=== PATIENT | female | born 1985 | race African-American/Black ===

== ENCOUNTER 2016-08-04 07:06 | Emergency (ER) | payer MEDICARE, MEDICAID ==
[~2016-08-04] VITALS: Ht 172.7 cm; Wt 61.0 kg
[~2016-08-04 07:06] MED LIST: CLON2TAB4; LORAZEPAM; SERT-112
[2016-08-04 07:43] VITALS: BP 102/66
[2016-08-04] MEDS ORDERED: LEVE1000 PO (07:49)
[2016-08-04] MEDS ORDERED: ALPR-392 PO (07:50)
== END 2016-08-04 08:33 | disposition home or self-care (01) ==
LOC: ER 07:51
DX: T78.40XA Allergy, unspecified, initial encounter (principal); F41.9 Anxiety disorder, unspecified; G40.909 Epilepsy, unspecified, not intractable, without status epilepticus; X58.XXXA Exposure to other specified factors, initial encounter
CPT/HCPCS: 99283

== ENCOUNTER 2016-08-09 08:52 | Emergency (ER) | payer MEDICARE, MEDICAID ==
[~2016-08-09 08:52] MED LIST changes: +ALPR-392 PO; +LEVE1000 PO
== END 2016-08-09 09:26 | disposition left against medical advice (07) ==
LOC: ER 09:18
DX: Z53.21 Procedure and treatment not carried out due to patient leaving prior to being seen by health care provider (principal)

== ENCOUNTER 2016-08-10 11:28 | Emergency (ER) | payer MEDICARE, MEDICAID ==
[~2016-08-10] VITALS: Ht 172.7 cm; Wt 61.0 kg
[2016-08-10 11:53] VITALS: BP 103/61
== END 2016-08-10 14:00 | disposition home or self-care (01) ==
LOC: ER 13:32
DX: Z76.0 Encounter for issue of repeat prescription (principal); M51.36 Other intervertebral disc degeneration, lumbar region; G40.909 Epilepsy, unspecified, not intractable, without status epilepticus; F41.9 Anxiety disorder, unspecified; Z91.018 Allergy to other foods; Z91.09 Other allergy status, other than to drugs and biological substances
CPT/HCPCS: 99283; J7030

== ENCOUNTER 2017-01-13 15:09 | Emergency (ER) | payer MEDICAID, MEDICARE ==
[~2017-01-13] VITALS: Ht 172.7 cm; Wt 71.0 kg
[2017-01-13 15:18] VITALS: BP 118/88
== END 2017-01-13 19:29 | disposition home or self-care (01) ==
LOC: ER 16:31
DX: S50.11XA Contusion of right forearm, initial encounter (principal); H91.92 Unspecified hearing loss, left ear; X58.XXXA Exposure to other specified factors, initial encounter; Y93.89 Activity, other specified; Y92.89 Other specified places as the place of occurrence of the external cause; Y99.8 Other external cause status
CPT/HCPCS: 99281

== ENCOUNTER 2017-03-31 07:54 | Emergency (ER) | payer MEDICAID ==
[~2017-03-31] VITALS: Ht 165.1 cm; Wt 65.0 kg
[2017-03-31] MEDS ORDERED: KETOROLAC 60MG/2ML VIAL IM ONE (09:30)
[2017-03-31 09:40] VITALS: BP 143/100
== END 2017-03-31 10:02 | disposition home or self-care (01) ==
LOC: ER 08:05
DX: M54.5 Low back pain (principal); F20.9 Schizophrenia, unspecified
CPT/HCPCS: 96372; 99283; J1885

== ENCOUNTER 2017-10-18 15:36 | Emergency (ER) | payer MEDICARE, MEDICAID ==
[~2017-10-18] VITALS: Ht 172.7 cm; Wt 68.0 kg
[~2017-10-18 15:36] MED LIST changes: +CLON2TAB11; -CLON2TAB4
[2017-10-18] MEDS ORDERED: SODIUM CHLORIDE 0.9% 1,000 ML IV ONE ×2 (17:00→19:15)
[2017-10-18 18:45] LABS: CLARITY URINE CLEAR (CLEAR); COLOR URINE YELLOW (YELLOW); KETONES URINE 3+ (NEGATIVE); LEUKOCYTE ESTERASE URINE NEGATIVE (NEGATIVE); NITRITE URINE NEGATIVE (NEGATIVE); OCCULT BLOOD URINE NEGATIVE (NEGATIVE); PROTEIN URINE NEGATIVE (NEGATIVE); SPECIFIC GRAVITY URINE 1.043 (1.005-1.030); UROBILINOGEN URINE 0.2 E.U./dL (0.2-1.0)
[2017-10-18 19:03] LABS: BASOPHILS % 0.7 % (0.0-2.0); EOSINOPHILS % 1.4 % (0.0-5.0); HEMATOCRIT. 46.4 % (36.0-48.0); HEMOGLOBIN. 15.8 g/dL (12.0-16.0); LYMPHOCYTES % 33.5 % (20.0-50.0); MEAN CORPUSCULAR HEMOGLOBIN 31.7 pg (28.0-32.0); MEAN CORPUSCULAR VOLUME 92.7 fL (81.0-99.0); MEAN PLATELET VOLUME 9.1 fl (7.4-10.4); MONOCYTES % 9.8 % (2.0-8.0); NEUTROPHILS % 54.6 % (40.0-76.0); PLATELET 307 x1000/uL (130-400); RED CELL DISTRIBUTION WIDTH 12.8 % (11.6-14.6)
[2017-10-18 19:03] LABS: *AMPHETAMINES SCREEN URINE NEGATIVE (NEGATIVE); *BARBITURATES SCREEN URINE NEGATIVE (NEGATIVE); *COCAINE SCREEN URINE NEGATIVE (NEGATIVE)
[2017-10-18 19:04] LABS: *BENZODIAZEPINES SCREEN URINE PRESUMTIVE POSITIVE (NEGATIVE); CANNABINOID URINE SCREEN NEGATIVE (NEGATIVE); METHADONE URINE SCREEN NEGATIVE (NEGATIVE); OPIATES URINE SCREEN NEGATIVE (NEGATIVE); PHENCYCLIDINE URINE SCREEN NEGATIVE (NEGATIVE)
[2017-10-18 19:04] LABS: CHLORIDE 97 mEq/L (98-107)
[2017-10-18 21:21] VITALS: BP 119/86
== END 2017-10-18 21:29 | disposition home or self-care (01) ==
LOC: ER 17:27
DX: R73.9 Hyperglycemia, unspecified (principal); R00.0 Tachycardia, unspecified; G40.909 Epilepsy, unspecified, not intractable, without status epilepticus; Z83.3 Family history of diabetes mellitus
CPT/HCPCS: 36415; 80048; 80305; 81003; 81025; 82962; 85025; 99285; J7030

== ENCOUNTER 2017-10-19 14:49 | Emergency (ER) | payer MEDICARE, MEDICAID ==
[~2017-10-19] VITALS: Ht 172.7 cm; Wt 68.6 kg
[2017-10-19 15:23] VITALS: BP 109/76
[2017-10-19] MEDS ORDERED: SODIUM CHLORIDE 0.9% 1,000 ML IV ONE (15:30)
[2017-10-19 16:17] LABS: BASOPHILS % 0.3 % (0.0-2.0); EOSINOPHILS % 1.6 % (0.0-5.0); HEMATOCRIT. 43.2 % (36.0-48.0); HEMOGLOBIN. 14.7 g/dL (12.0-16.0); LYMPHOCYTES % 32.3 % (20.0-50.0); MEAN CORPUSCULAR HEMOGLOBIN 31.8 pg (28.0-32.0); MEAN CORPUSCULAR VOLUME 93.3 fL (81.0-99.0); MONOCYTES % 6.8 % (2.0-8.0); RED BLOOD CELL COUNT 4.64 mill/uL (4.2-5.4); RED CELL DISTRIBUTION WIDTH 12.6 % (11.6-14.6)
[2017-10-19 16:22] LABS: CHLORIDE 98 mEq/L (98-107)
[2017-10-19 16:30] LABS: BETA HYDROXYBUTYRATE 2.4 mMol/L (0.0-0.3)
== END 2017-10-19 17:45 | disposition left against medical advice (07) ==
LOC: ER 14:49
DX: E11.65 Type 2 diabetes mellitus with hyperglycemia (principal); R56.9 Unspecified convulsions; F41.9 Anxiety disorder, unspecified
CPT/HCPCS: 36415; 80053; 82010; 85025; 99284; J7030

== ENCOUNTER 2017-11-16 19:15 | Emergency (ER) | payer MEDICARE, MEDICAID ==
[~2017-11-16] VITALS: Ht 172.7 cm; Wt 63.6 kg
[2017-11-16] MEDS ORDERED: ACETAMINOPHEN WITH CODEINE 300/30MG TABLET PO STA (23:49)
[2017-11-17 00:56] LABS: CHLORIDE 101 mEq/L (98-107)
[2017-11-17 01:01] LABS: BASOPHILS % 1.1 % (0.0-2.0); EOSINOPHILS % 2.1 % (0.0-5.0); HEMATOCRIT. 40.4 % (36.0-48.0); HEMOGLOBIN. 13.8 g/dL (12.0-16.0); LYMPHOCYTES % 41.3 % (20.0-50.0); MEAN CORPUSCULAR HEMOGLOBIN 32.4 pg (28.0-32.0); MEAN CORPUSCULAR VOLUME 94.5 fL (81.0-99.0); MEAN PLATELET VOLUME 8.2 fl (7.4-10.4); MONOCYTES % 10.1 % (2.0-8.0); NEUTROPHILS % 45.4 % (40.0-76.0); PLATELET 292 x1000/uL (130-400); RED BLOOD CELL COUNT 4.27 mill/uL (4.2-5.4); RED CELL DISTRIBUTION WIDTH 12.8 % (11.6-14.6)
[2017-11-17] MEDS ORDERED: KETOROLAC 15MG/ML VIAL IV ONE (01:30)
[2017-11-17 02:58] VITALS: BP 124/71
== END 2017-11-17 03:01 | disposition home or self-care (01) ==
LOC: ER 19:15
DX: R07.89 Other chest pain (principal); F41.9 Anxiety disorder, unspecified; R00.0 Tachycardia, unspecified; G40.909 Epilepsy, unspecified, not intractable, without status epilepticus; E11.9 Type 2 diabetes mellitus without complications
CPT/HCPCS: 36415; 71045; 80053; 81025; 84484; 85025; 85379; 93005; 96374; 99285; J1885

== ENCOUNTER 2018-04-25 12:08 | Emergency (ER) | payer BC, MEDICAID ==
[~2018-04-25] VITALS: Ht 172.7 cm; Wt 73.0 kg
[2018-04-25 14:11] VITALS: BP 126/82
== END 2018-04-25 17:52 | disposition left against medical advice (07) ==
LOC: ER 12:08
DX: Z53.21 Procedure and treatment not carried out due to patient leaving prior to being seen by health care provider (principal)

== ENCOUNTER 2018-04-26 06:46 | Emergency (ER) | payer BC, MEDICAID ==
[~2018-04-26] VITALS: Ht 172.7 cm; Wt 73.0 kg
[2018-04-26 07:14] VITALS: BP 108/73
[2018-04-26 09:29] LABS: CLARITY URINE CLEAR (CLEAR); COLOR URINE YELLOW (YELLOW); KETONES URINE NEGATIVE (NEGATIVE); LEUKOCYTE ESTERASE URINE NEGATIVE (NEGATIVE); NITRITE URINE NEGATIVE (NEGATIVE); OCCULT BLOOD URINE NEGATIVE (NEGATIVE); PH URINE 5.5 (4.5-8.0); PROTEIN URINE NEGATIVE (NEGATIVE); SPECIFIC GRAVITY URINE 1.011 (1.005-1.030); UROBILINOGEN URINE 0.2 E.U./dL (0.2-1.0)
== END 2018-04-26 10:00 | disposition home or self-care (01) ==
LOC: ER 06:46
DX: S40.022A Contusion of left upper arm, initial encounter (principal); G89.29 Other chronic pain; M54.5 Low back pain; E11.9 Type 2 diabetes mellitus without complications; R56.9 Unspecified convulsions; F41.0 Panic disorder [episodic paroxysmal anxiety]; Z79.899 Other long term (current) drug therapy; X58.XXXA Exposure to other specified factors, initial encounter; Y93.89 Activity, other specified; Y92.89 Other specified places as the place of occurrence of the external cause; Y99.8 Other external cause status
CPT/HCPCS: 81025; 99283

== ENCOUNTER 2018-05-18 10:21 | Emergency (ER) | payer BC, MEDICAID ==
[~2018-05-18] VITALS: Ht 172.7 cm; Wt 73.0 kg
[2018-05-18 11:15] VITALS: BP 122/76
[2018-05-18 11:52] LABS: CLARITY URINE CLEAR (CLEAR); COLOR URINE YELLOW (YELLOW); KETONES URINE NEGATIVE (NEGATIVE); LEUKOCYTE ESTERASE URINE NEGATIVE (NEGATIVE); NITRITE URINE NEGATIVE (NEGATIVE); OCCULT BLOOD URINE NEGATIVE (NEGATIVE); PH URINE 5.5 (4.5-8.0); PROTEIN URINE NEGATIVE (NEGATIVE); SPECIFIC GRAVITY URINE 1.016 (1.005-1.030); UROBILINOGEN URINE 0.2 E.U./dL (0.2-1.0)
== END 2018-05-18 15:08 | disposition left against medical advice (07) ==
LOC: ER 11:33
DX: Z53.21 Procedure and treatment not carried out due to patient leaving prior to being seen by health care provider (principal)
CPT/HCPCS: 81025

== ENCOUNTER 2018-07-10 18:13 | Emergency (ER) | payer OTHER, MEDICAID ==
[~2018-07-10] VITALS: Ht 172.7 cm; Wt 74.0 kg
[2018-07-10 18:15] VITALS: BP 125/86
== END 2018-07-10 20:19 | disposition left against medical advice (07) ==
LOC: ER 18:13
DX: M54.5 Low back pain (principal); Z53.21 Procedure and treatment not carried out due to patient leaving prior to being seen by health care provider
CPT/HCPCS: 82962

== ENCOUNTER 2018-07-16 19:51 | Emergency (ER) | payer OTHER, MEDICAID ==
[~2018-07-16] VITALS: Ht 172.7 cm; Wt 73.0 kg
[2018-07-16 22:32] VITALS: BP 108/73
[2018-07-16] MEDS ORDERED: KETOROLAC 60MG/2ML VIAL IM STA (22:32)
== END 2018-07-16 23:51 | disposition home or self-care (01) ==
LOC: ER 19:51
DX: K13.0 Diseases of lips (principal); L01.00 Impetigo, unspecified; K14.0 Glossitis
CPT/HCPCS: 96372; 99283; J1885

== ENCOUNTER 2018-08-06 13:43 | Emergency (ER) | payer OTHER, MEDICAID ==
[~2018-08-06] VITALS: Ht 172.7 cm; Wt 72.0 kg
[2018-08-06] MEDS ORDERED: MORPHINE SULFATE 4 MG/ML CPJ (NOT FOR IM USE) IV STA (14:55)
[2018-08-06] MEDS ORDERED: KETOROLAC 30MG/ML VIAL IV STA (14:55)
[2018-08-06] MEDS ORDERED: DEXAMETHASONE 4MG/ML 1ML VIAL IV ONE (15:00)
[2018-08-06 15:40] VITALS: BP 113/74
== END 2018-08-06 17:00 | disposition home or self-care (01) ==
LOC: ER 14:18
DX: M54.5 Low back pain (principal); G89.29 Other chronic pain
CPT/HCPCS: 96374; 96375; 99283; J1100; J1885; J2270

== ENCOUNTER 2018-12-16 14:29 | Emergency (ER) | payer OTHER, MEDICAID ==
[~2018-12-16] VITALS: Ht 172.7 cm; Wt 67.0 kg
[2018-12-16] MEDS ORDERED: LIDOCAINE 5% PATCH TOP STA (18:24)
[2018-12-16] MEDS ORDERED: IBUPROFEN 800MG TABLET PO ONE (18:30)
[2018-12-16] MEDS ORDERED: ACETAMINOPHEN 325MG TABLET PO ONE (18:30)
[2018-12-16 19:08] LABS: BASOPHILS % 0.7 % (0.0-2.0); EOSINOPHILS % 3.3 % (0.0-5.0); LYMPHOCYTES % 38.3 % (20.0-50.0); MEAN CORPUSCULAR HEMOGLOBIN 31.7 pg (28.0-32.0); MEAN CORPUSCULAR VOLUME 92.8 fL (81.0-99.0); MEAN PLATELET VOLUME 8.6 fl (7.4-10.4); MONOCYTES % 9.1 % (2.0-8.0); NEUTROPHILS % 48.6 % (40.0-76.0); PLATELET 370 x1000/uL (130-400); RED BLOOD CELL COUNT 4.42 mill/uL (4.2-5.4); RED CELL DISTRIBUTION WIDTH 13.1 % (11.6-14.6)
[2018-12-16 19:12] LABS: CHLORIDE 104 mEq/L (98-107)
[2018-12-16 19:30] LABS: CLARITY URINE CLOUDY (CLEAR); COLOR URINE YELLOW (YELLOW); KETONES URINE 1+ (NEGATIVE); LEUKOCYTE ESTERASE URINE NEGATIVE (NEGATIVE); NITRITE URINE NEGATIVE (NEGATIVE); OCCULT BLOOD URINE NEGATIVE (NEGATIVE); PROTEIN URINE 1+ (NEGATIVE); SPECIFIC GRAVITY URINE 1.037 (1.005-1.030)
[2018-12-16] MEDS ORDERED: HYDROCODONE/ACETAMINOPHEN 10/325MG TABLET PO ONE (20:15)
[2018-12-16 21:20] VITALS: BP 122/81
== END 2018-12-16 21:35 | disposition home or self-care (01) ==
LOC: ER 14:29
DX: G89.29 Other chronic pain (principal); M54.5 Low back pain; R07.89 Other chest pain; E11.9 Type 2 diabetes mellitus without complications; Z79.899 Other long term (current) drug therapy
CPT/HCPCS: 36415; 71045; 81003; 81025; 84484; 85379; 93005; 99284

== ENCOUNTER 2019-10-15 20:26 | Emergency (ER) | payer OTHER, MEDICAID ==
[~2019-10-15] VITALS: Ht 172.7 cm; Wt 75.0 kg
[2019-10-15] MEDS ORDERED: KETOROLAC 60MG/2ML VIAL IM STA (22:30)
[2019-10-15] MEDS ORDERED: LIDOCAINE 1%/EPI 1:100,000 10 ML VIAL IJ ONE (22:45)
[2019-10-15] MEDS ORDERED: BACITRACIN ZINC OINT UDPKT TOP ONE (22:45)
[2019-10-15 23:36] VITALS: BP 123/88
== END 2019-10-15 23:38 | disposition home or self-care (01) ==
LOC: ER 20:26
DX: L02.01 Cutaneous abscess of face (principal); G40.909 Epilepsy, unspecified, not intractable, without status epilepticus; E11.9 Type 2 diabetes mellitus without complications; Z98.890 Other specified postprocedural states
CPT/HCPCS: 96372; 99283; J1885

== ENCOUNTER 2019-11-06 21:31 | Emergency (ER) | payer OTHER, MEDICAID ==
[~2019-11-06] VITALS: Ht 172.7 cm; Wt 73.0 kg
[2019-11-06 21:39] VITALS: BP 143/100
[2019-11-06] MEDS ORDERED: IBUPROFEN 600MG TABLET PO ONE (23:30)
[2019-11-07] MEDS ORDERED: HYDROCODONE/ACETAMINOPHEN 5/325MG TABLET PO ONE (00:15)
== END 2019-11-07 01:07 | disposition home or self-care (01) ==
LOC: ER 21:31
DX: M54.5 Low back pain (principal); G89.29 Other chronic pain; Z98.890 Other specified postprocedural states; Z79.899 Other long term (current) drug therapy
CPT/HCPCS: 72100; 99283

== ENCOUNTER 2019-12-10 17:41 | Emergency (ER) | payer OTHER, MEDICAID ==
[~2019-12-10] VITALS: Ht 172.7 cm; Wt 73.0 kg
[2019-12-10] MEDS ORDERED: MORPHINE SULFATE 4 MG/ML CPJ (NOT FOR IM USE) IV STA (18:41)
[2019-12-10] MEDS ORDERED: CYCLOBENZAPRINE 10MG TABLET PO ONE (18:45)
[2019-12-10 20:08] LABS: BASOPHILS % 0.7 % (0.0-2.0); EOSINOPHILS % 4.2 % (0.0-5.0); HEMATOCRIT. 39.3 % (36.0-48.0); HEMOGLOBIN. 13.6 g/dL (12.0-16.0); LYMPHOCYTES % 40.3 % (20.0-50.0); MEAN CORPUSCULAR HEMOGLOBIN 32.8 pg (28.0-32.0); MEAN PLATELET VOLUME 8.2 fl (7.4-10.4); MONOCYTES % 9.4 % (2.0-8.0); NEUTROPHILS % 45.4 % (40.0-76.0); PLATELET 353 x1000/uL (130-400); RED BLOOD CELL COUNT 4.13 mill/uL (4.2-5.4); RED CELL DISTRIBUTION WIDTH 13.1 % (11.6-14.6)
[2019-12-10 20:13] LABS: CHLORIDE 105 mEq/L (98-107)
[2019-12-10 20:16] LABS: INR 0.9
[2019-12-10 20:44] LABS: HCG SCREEN NEGATIVE
[2019-12-10] MEDS ORDERED: MORPHINE SULFATE 4 MG/ML CPJ (NOT FOR IM USE) IV ONE (20:45)
[2019-12-10] MEDS ORDERED: KETOROLAC 15MG/ML VIAL IV ONE (20:45)
[2019-12-10 21:28] LABS: CLARITY URINE CLEAR (CLEAR); COLOR URINE YELLOW (YELLOW); KETONES URINE NEGATIVE (NEGATIVE); LEUKOCYTE ESTERASE URINE NEGATIVE (NEGATIVE); NITRITE URINE NEGATIVE (NEGATIVE); OCCULT BLOOD URINE TRACE (NEGATIVE); PROTEIN URINE TRACE (NEGATIVE); SPECIFIC GRAVITY URINE 1.027 (1.005-1.030); UROBILINOGEN URINE 0.2 E.U./dL (0.2-1.0)
[2019-12-10 22:53] VITALS: BP 125/87
== END 2019-12-10 23:21 | disposition short-term general hospital (02) ==
LOC: ER 17:41
DX: M54.5 Low back pain (principal)
CPT/HCPCS: 36415; 80053; 81003; 82962; 84703; 85025; 85610; 85651; 93005; 96374; 96375; 96376; 99285; J1885; J2270

== ENCOUNTER 2019-12-23 19:45 | Emergency (ER) | payer OTHER, MEDICAID ==
[~2019-12-23] VITALS: Ht 172.7 cm; Wt 77.0 kg
[2019-12-23] MEDS ORDERED: MORPHINE SULFATE 10 MG/ML CPJ IM ONE (20:45)
[2019-12-23] MEDS ORDERED: ONDANSETRON 4MG ODT PO ONE (20:45)
[2019-12-23 22:12] VITALS: BP 112/81
== END 2019-12-23 22:16 | disposition home or self-care (01) ==
LOC: ER 20:22
DX: M54.5 Low back pain (principal); G89.11 Acute pain due to trauma; Z91.81 History of falling; G89.29 Other chronic pain; E11.9 Type 2 diabetes mellitus without complications; G40.909 Epilepsy, unspecified, not intractable, without status epilepticus; Z98.1 Arthrodesis status; Z79.899 Other long term (current) drug therapy
CPT/HCPCS: 72100; 96372; 99283; J2270; Q0162

== ENCOUNTER 2019-12-28 09:09 | Emergency (ER) | payer OTHER, MEDICAID ==
[~2019-12-28] VITALS: Ht 172.7 cm; Wt 69.0 kg
[2019-12-28] MEDS: SODIUM CHLORIDE 0.9% 1,000 ML IV ONE (10:02)
[2019-12-28 11:27] LABS: BASOPHILS % 0.4 % (0.0-2.0); HEMATOCRIT. 38.8 % (36.0-48.0); HEMOGLOBIN. 13.3 g/dL (12.0-16.0); LYMPHOCYTES % 33.7 % (20.0-50.0); MEAN CORPUSCULAR HEMOGLOBIN 32.7 pg (28.0-32.0); MEAN CORPUSCULAR VOLUME 95.7 fL (81.0-99.0); MEAN PLATELET VOLUME 9.1 fl (7.4-10.4); MONOCYTES % 8.6 % (2.0-8.0); NEUTROPHILS % 54.3 % (40.0-76.0); PLATELET 286 x1000/uL (130-400); RED BLOOD CELL COUNT 4.06 mill/uL (4.2-5.4); RED CELL DISTRIBUTION WIDTH 12.9 % (11.6-14.6)
[2019-12-28 11:37] LABS: PROTHROMBIN TIME 10.1 sec (9.6-11.0)
[2019-12-28 11:50] LABS: CHLORIDE 106 mEq/L (98-107)
[2019-12-28 11:54] LABS: ETHANOL BLOOD < 10 mg/dL
[2019-12-28 11:57] LABS: HCG SCREEN NEGATIVE
[2019-12-28 12:00] LABS: CREATINE KINASE 114 IU/L (26-192)
[2019-12-28 12:02] LABS: CLARITY URINE CLEAR (CLEAR); COLOR URINE YELLOW (YELLOW); KETONES URINE NEGATIVE (NEGATIVE); LEUKOCYTE ESTERASE URINE NEGATIVE (NEGATIVE); NITRITE URINE NEGATIVE (NEGATIVE); OCCULT BLOOD URINE NEGATIVE (NEGATIVE); PH URINE 6.5 (4.5-8.0); PROTEIN URINE NEGATIVE (NEGATIVE); SPECIFIC GRAVITY URINE 1.016 (1.005-1.030); UROBILINOGEN URINE 0.2 E.U./dL (0.2-1.0)
[2019-12-28 12:55] LABS: *AMPHETAMINES SCREEN URINE NEGATIVE (NEGATIVE); *BARBITURATES SCREEN URINE NEGATIVE (NEGATIVE); *BENZODIAZEPINES SCREEN URINE NEGATIVE (NEGATIVE); *COCAINE SCREEN URINE NEGATIVE (NEGATIVE); CANNABINOID URINE SCREEN NEGATIVE (NEGATIVE); METHADONE URINE SCREEN NEGATIVE (NEGATIVE); OPIATES URINE SCREEN NEGATIVE (NEGATIVE); PHENCYCLIDINE URINE SCREEN NEGATIVE (NEGATIVE)
[2019-12-28] MEDS ORDERED: ALPRAZOLAM 0.25 MG TABLET PO ONE (16:00)
[2019-12-28] MEDS: ALPRAZOLAM 0.25 MG TABLET PO NR (17:26)
[2019-12-28] MEDS: LEVETIRACETAM 500MG PREMIX 100 ML IV ONE (22:03)
[2019-12-28] MEDS: INSULIN LISPRO 100 UNITS/ML SUBCUT ONE (22:43)
[2019-12-28] MEDS: KETOROLAC 15MG/ML VIAL IV ONE (23:52)
[2019-12-29 01:55] VITALS: BP 113/75
== END 2019-12-29 03:05 ==
LOC: ER 09:19
DX: T14.91XA Suicide attempt, initial encounter (principal); E11.65 Type 2 diabetes mellitus with hyperglycemia; Z20.828 Contact with and (suspected) exposure to other viral communicable diseases; Z78.1 Physical restraint status; Z98.890 Other specified postprocedural states; Z79.899 Other long term (current) drug therapy; X83.8XXA Intentional self-harm by other specified means, initial encounter; Y93.89 Activity, other specified; Y92.89 Other specified places as the place of occurrence of the external cause; Y99.8 Other external cause status
CPT/HCPCS: 36415; 71045; 80053; 80305; 80307; 80320; 80329; 81003; 82140; 82550; 82947; 82962; 84703; 85025; 87426; 93005; 96361; 96365; 96374; 96375; 99285; J1815; J1885; J1953; J7030; G0480

== ENCOUNTER 2020-08-09 20:23 | Emergency (ER) | payer OTHER, MEDICAID ==
[~2020-08-09] VITALS: Ht 172.7 cm; Wt 87.0 kg
[2020-08-09 20:35] VITALS: BP 142/92
[2020-08-09] MEDS ORDERED: ACETAMINOPHEN 325MG TABLET PO ONE (21:00)
[2020-08-09] MEDS ORDERED: TETANUS, DIPHTHERIA, PERTUSSIS VAC/PF 0.5ML (>7YR OLD) IM ONE (22:30)
== END 2020-08-09 23:03 | disposition home or self-care (01) ==
LOC: ER 20:23
DX: S00.83XA Contusion of other part of head, initial encounter (principal); M79.645 Pain in left finger(s); E11.9 Type 2 diabetes mellitus without complications; F11.10 Opioid abuse, uncomplicated; Z13.9 Encounter for screening, unspecified; Z86.59 Personal history of other mental and behavioral disorders; Z98.890 Other specified postprocedural states; Y04.0XXA Assault by unarmed brawl or fight, initial encounter; Y93.89 Activity, other specified; Y92.89 Other specified places as the place of occurrence of the external cause; Y99.8 Other external cause status
CPT/HCPCS: 73130; 81025; 90471; 90715; 99284

== ENCOUNTER 2020-11-12 09:46 | Emergency (ER) | payer OTHER ==
[~2020-11-12] VITALS: Ht 172.7 cm; Wt 82.0 kg
[2020-11-12 09:58] VITALS: BP 125/95
[2020-11-12] MEDS ORDERED: DEXA0.5E3 MT (10:28)
== END 2020-11-12 10:37 | disposition home or self-care (01) ==
LOC: ER 09:46
DX: K12.0 Recurrent oral aphthae (principal); F11.10 Opioid abuse, uncomplicated; E11.9 Type 2 diabetes mellitus without complications; Z86.59 Personal history of other mental and behavioral disorders; Z98.890 Other specified postprocedural states
CPT/HCPCS: 99283

== ENCOUNTER 2021-03-24 14:08 | Emergency (ER) | payer OTHER, MEDICAID ==
[~2021-03-24] VITALS: Ht 170.2 cm; Wt 80.0 kg
[~2021-03-24 14:08] MED LIST changes: +DEXA0.5E3 MT
[2021-03-24] MEDS ORDERED: IBUPROFEN 400MG TABLET PO ONE (15:15)
[2021-03-24 15:25] LABS: BASOPHILS % 0.6 % (0.0-2.0); EOSINOPHILS % 1.1 % (0.0-5.0); HEMATOCRIT. 38.9 % (36.0-48.0); HEMOGLOBIN. 12.8 g/dL (12.0-16.0); LYMPHOCYTES % 35.9 % (20.0-50.0); MEAN CORPUSCULAR HEMOGLOBIN 30.4 pg (28.0-32.0); MEAN CORPUSCULAR VOLUME 92.6 fL (81.0-99.0); MONOCYTES % 11.5 % (2.0-8.0); NEUTROPHILS % 50.9 % (40.0-76.0); PLATELET 317 x1000/uL (130-400); RED CELL DISTRIBUTION WIDTH 12.8 % (11.6-14.6)
[2021-03-24 15:29] LABS: CHLORIDE 105 mEq/L (98-107)
[2021-03-24 15:36] LABS: ETHANOL BLOOD < 10 mg/dL
[2021-03-24 15:37] LABS: CLARITY URINE CLEAR (CLEAR); COLOR URINE YELLOW (YELLOW); KETONES URINE TRACE (NEGATIVE); LEUKOCYTE ESTERASE URINE NEGATIVE (NEGATIVE); NITRITE URINE NEGATIVE (NEGATIVE); OCCULT BLOOD URINE NEGATIVE (NEGATIVE); PROTEIN URINE NEGATIVE (NEGATIVE)
[2021-03-24 15:45] LABS: HCG SCREEN NEGATIVE
[2021-03-24 15:55] LABS: *AMPHETAMINES SCREEN URINE NEGATIVE (NEGATIVE)
[2021-03-24 15:56] LABS: *BARBITURATES SCREEN URINE NEGATIVE (NEGATIVE); *COCAINE SCREEN URINE NEGATIVE (NEGATIVE); METHADONE URINE SCREEN NEGATIVE (NEGATIVE); OPIATES URINE SCREEN NEGATIVE (NEGATIVE); PHENCYCLIDINE URINE SCREEN NEGATIVE (NEGATIVE)
[2021-03-24 15:57] LABS: CANNABINOID URINE SCREEN NEGATIVE (NEGATIVE)
[2021-03-24 16:04] LABS: *BENZODIAZEPINES SCREEN URINE PRESUMTIVE POSITIVE (NEGATIVE)
[2021-03-24] MEDS ORDERED: IBUPROFEN 600MG TABLET PO ONE (20:45)
[2021-03-24] MEDS ORDERED: DIPHENHYDRAMINE 50MG CAPSULE PO ONE (22:15)
[2021-03-24] MEDS ORDERED: ALPRAZOLAM 0.5 MG TABLET PO ONE (22:15)
[2021-03-24] MEDS ORDERED: INSULIN REGULAR (HUMULIN R) 300UNITS/3ML VIAL SUBCUT ONE (22:15)
[2021-03-24] MEDS ORDERED: INSULIN GLARGINE UD 100 UNITS/ML SYR SUBCUT ONE (22:15)
[2021-03-25] MEDS ORDERED: PREGABALIN 25MG CAPSULE PO ONE (06:00)
[2021-03-25] MEDS: LAMOTRIGINE 150MG TABLET PO SCH ×2 (06:00→07:28)
[2021-03-25] MEDS ORDERED: PREGABALIN 75MG CAPSULE PO ONE (06:45)
[2021-03-25 12:30] VITALS: BP 115/75
== END 2021-03-25 12:31 | disposition home or self-care (01) ==
LOC: ER 14:24
DX: F33.9 Major depressive disorder, recurrent, unspecified (principal); R45.851 Suicidal ideations; E10.65 Type 1 diabetes mellitus with hyperglycemia; M25.512 Pain in left shoulder; D72.829 Elevated white blood cell count, unspecified; Z63.79 Other stressful life events affecting family and household; Z63.4 Disappearance and death of family member; Z62.820 Parent-biological child conflict; Z56.0 Unemployment, unspecified; Z20.822 Contact with and (suspected) exposure to COVID-19; F16.90 Hallucinogen use, unspecified, uncomplicated; F13.90 Sedative, hypnotic, or anxiolytic use, unspecified, uncomplicated; G40.909 Epilepsy, unspecified, not intractable, without status epilepticus; Z79.4 Long term (current) use of insulin; Z79.899 Other long term (current) drug therapy
CPT/HCPCS: 36415; 73030; 80053; 80305; 80307; 80320; 80329; 81003; 82962; 84703; 85025; 87635; 93005; 96372; 99285; J1815; Q0163; G0480

== ENCOUNTER 2021-04-14 11:52 | Emergency (ER) | payer OTHER, MEDICAID ==
[~2021-04-14] VITALS: Ht 172.7 cm; Wt 94.0 kg
[2021-04-14] MEDS ORDERED: ACETAMINOPHEN 325MG TABLET PO ONE (12:15)
[2021-04-14 12:39] LABS: BASOPHILS % 0.3 % (0.0-2.0); EOSINOPHILS % 2.6 % (0.0-5.0); HEMOGLOBIN. 12.9 g/dL (12.0-16.0); LYMPHOCYTES % 35.8 % (20.0-50.0); MEAN CORPUSCULAR HEMOGLOBIN 31.4 pg (28.0-32.0); MEAN CORPUSCULAR VOLUME 92.1 fL (81.0-99.0); MEAN PLATELET VOLUME 7.5 fl (7.4-10.4); MONOCYTES % 10.1 % (2.0-8.0); NEUTROPHILS % 51.2 % (40.0-76.0); PLATELET 340 x1000/uL (130-400); RED BLOOD CELL COUNT 4.12 mill/uL (4.2-5.4); RED CELL DISTRIBUTION WIDTH 13.5 % (11.6-14.6)
[2021-04-14 12:40] LABS: CHLORIDE 109 mEq/L (98-107)
[2021-04-14] MEDS ORDERED: ACET-2708 MT (15:11)
[2021-04-14 15:27] VITALS: BP 134/82
[2021-04-14] MEDS ORDERED: IBUPROFEN 800MG TABLET PO ONE (15:30)
== END 2021-04-14 15:31 | disposition home or self-care (01) ==
LOC: ER 11:52
DX: R60.0 Localized edema (principal); M79.605 Pain in left leg; M79.604 Pain in right leg; E11.9 Type 2 diabetes mellitus without complications; G40.409 Other generalized epilepsy and epileptic syndromes, not intractable, without status epilepticus; Z79.899 Other long term (current) drug therapy; Z91.018 Allergy to other foods
CPT/HCPCS: 36415; 71045; 80053; 83880; 85025; 93970; 99285

== ENCOUNTER 2021-06-12 10:57 | Emergency (ER) | payer OTHER, MEDICAID ==
[~2021-06-12] VITALS: Ht 172.7 cm; Wt 91.0 kg
[~2021-06-12 10:57] MED LIST changes: +ACET-2708 MT
[2021-06-12] MEDS ORDERED: CLIN300C12 MT (11:41)
[2021-06-12 11:57] VITALS: BP 133/72
== END 2021-06-12 11:59 | disposition home or self-care (01) ==
LOC: ER 10:57
DX: T81.49XA Infection following a procedure, other surgical site, initial encounter (principal); Y76.8 Miscellaneous obstetric and gynecological devices associated with adverse incidents, not elsewhere classified; Y92.018 Other place in single-family (private) house as the place of occurrence of the external cause
CPT/HCPCS: 99283

== ENCOUNTER 2021-06-15 16:42 | Emergency (ER) | payer OTHER, MEDICAID ==
[~2021-06-15] VITALS: Ht 172.7 cm; Wt 91.0 kg
[~2021-06-15 16:42] MED LIST changes: +CLIN300C12 MT
[2021-06-15 16:55] VITALS: BP 115/82
[2021-06-15] MEDS ORDERED: IBUP-2028 MT (18:25)
[2021-06-15] MEDS ORDERED: IBUPROFEN 400MG TABLET PO ONE (18:30)
== END 2021-06-15 19:27 | disposition home or self-care (01) ==
LOC: ER 16:58
DX: S83.8X1A Sprain of other specified parts of right knee, initial encounter (principal); W01.0XXA Fall on same level from slipping, tripping and stumbling without subsequent striking against object, initial encounter; Y93.89 Activity, other specified; Y92.89 Other specified places as the place of occurrence of the external cause; Y99.8 Other external cause status; F41.9 Anxiety disorder, unspecified; F32.9 Major depressive disorder, single episode, unspecified; E11.9 Type 2 diabetes mellitus without complications; Z90.710 Acquired absence of both cervix and uterus; Z79.899 Other long term (current) drug therapy
CPT/HCPCS: 73562; 99283

== ENCOUNTER 2021-07-30 22:07 | Emergency (ER) | payer OTHER, MEDICAID ==
[~2021-07-30] VITALS: Ht 172.7 cm; Wt 98.5 kg
[~2021-07-30 22:07] MED LIST changes: +CLIN-194 MT; -CLIN300C12 MT; +IBUP-2028 MT
[2021-07-30 22:55] VITALS: BP 144/84
[2021-07-31] MEDS ORDERED: KETOROLAC 60MG/2ML VIAL IM ONE (00:45)
[2021-07-31] MEDS ORDERED: CYCL10TA21 MT (01:49)
[2021-07-31] MEDS ORDERED: IBUP-2028 MT (01:49)
== END 2021-07-31 02:25 | disposition home or self-care (01) ==
LOC: ER 22:07
DX: M26.602 Left temporomandibular joint disorder, unspecified (principal); M54.59 Other low back pain; E11.9 Type 2 diabetes mellitus without complications; G40.909 Epilepsy, unspecified, not intractable, without status epilepticus; Z96.698 Presence of other orthopedic joint implants; Z98.890 Other specified postprocedural states; Z90.710 Acquired absence of both cervix and uterus
CPT/HCPCS: 72100; 96372; 99283; J1885

== ENCOUNTER 2021-08-08 23:32 | Emergency (ER) | payer OTHER, MEDICAID ==
[~2021-08-08] VITALS: Ht 172.7 cm; Wt 98.2 kg
[~2021-08-08 23:32] MED LIST changes: +CYCL10TA21 MT
[2021-08-08 23:51] VITALS: BP 121/80
== END 2021-08-09 01:10 | disposition left against medical advice (07) ==
LOC: ER 23:32
DX: Z53.21 Procedure and treatment not carried out due to patient leaving prior to being seen by health care provider (principal)

== ENCOUNTER 2021-09-14 10:45 | Emergency (ER) | payer OTHER, MEDICAID ==
[~2021-09-14] VITALS: Ht 172.7 cm; Wt 91.0 kg
[2021-09-14] MEDS ORDERED: HYDROCODONE/ACETAMINOPHEN 5/325MG TABLET PO ONE (11:15)
[2021-09-14 11:50] VITALS: BP 123/81
== END 2021-09-14 11:52 | disposition home or self-care (01) ==
LOC: ER 10:45
DX: R68.84 Jaw pain (principal); G89.29 Other chronic pain; F41.9 Anxiety disorder, unspecified; E11.9 Type 2 diabetes mellitus without complications; Z90.710 Acquired absence of both cervix and uterus; Z79.899 Other long term (current) drug therapy
CPT/HCPCS: 99281

== ENCOUNTER 2021-09-27 22:36 | Emergency (ER) | payer OTHER, MEDICAID | END 2021-09-27 22:50 | disposition left against medical advice (07) | LOC: ER 22:36 | DX: Z53.21 Procedure and treatment not carried out due to patient leaving prior to being seen by health care provider (principal) ==

== ENCOUNTER 2021-10-26 19:02 | Emergency (ER) | payer OTHER, MEDICAID ==
[~2021-10-26] VITALS: Ht 172.7 cm; Wt 86.0 kg
[2021-10-26] MEDS ORDERED: IBUPROFEN 600MG TABLET PO ONE (20:15)
[2021-10-26 20:25] VITALS: BP 134/91
== END 2021-10-26 22:26 | disposition left against medical advice (07) ==
LOC: ER 19:02
DX: R68.84 Jaw pain (principal); G89.29 Other chronic pain; F41.9 Anxiety disorder, unspecified; E11.9 Type 2 diabetes mellitus without complications; Z90.710 Acquired absence of both cervix and uterus; Z79.899 Other long term (current) drug therapy
CPT/HCPCS: 99281

== ENCOUNTER 2021-11-12 18:05 | Emergency (ER) | payer OTHER, MEDICAID ==
[~2021-11-12] VITALS: Ht 167.6 cm; Wt 81.0 kg
[2021-11-12] MEDS ORDERED: KETOROLAC 60MG/2ML VIAL IM ONE (22:45)
[2021-11-12] MEDS ORDERED: CYCLOBENZAPRINE 10MG TABLET PO ONE (22:45)
[2021-11-12] MEDS ORDERED: NAPR-1176 MT (22:50)
[2021-11-12] MEDS ORDERED: CYCL10TA21 MT (22:50)
[2021-11-12 23:05] VITALS: BP 138/84
== END 2021-11-12 23:07 | disposition home or self-care (01) ==
LOC: ER 18:05
DX: G89.29 Other chronic pain (principal); R68.84 Jaw pain; F41.9 Anxiety disorder, unspecified; E11.9 Type 2 diabetes mellitus without complications; G40.909 Epilepsy, unspecified, not intractable, without status epilepticus; Z90.710 Acquired absence of both cervix and uterus; Z91.018 Allergy to other foods
CPT/HCPCS: 96372; 99283; J1885

== ENCOUNTER 2021-12-22 21:34 | Emergency (ER) | payer OTHER, MEDICAID ==
[~2021-12-22] VITALS: Ht 172.7 cm; Wt 90.0 kg
[~2021-12-22 21:34] MED LIST changes: +NAPR-1176 MT
[2021-12-22 21:35] VITALS: BP 137/96
== END 2021-12-23 01:48 | disposition home or self-care (01) ==
LOC: ER 21:34
DX: I10 Essential (primary) hypertension (principal); F41.9 Anxiety disorder, unspecified; E11.9 Type 2 diabetes mellitus without complications; Z90.710 Acquired absence of both cervix and uterus; Z79.899 Other long term (current) drug therapy
CPT/HCPCS: 81025; 99282

== ENCOUNTER 2021-12-24 17:07 | Emergency (ER) | payer OTHER, MEDICAID ==
[~2021-12-24] VITALS: Ht 175.3 cm; Wt 91.0 kg
[2021-12-24 21:40] VITALS: BP 112/78
== END 2021-12-24 21:30 | disposition home or self-care (01) ==
LOC: ER 17:07
DX: R05.9 Cough, unspecified (principal); E11.9 Type 2 diabetes mellitus without complications; Z79.899 Other long term (current) drug therapy; Z98.890 Other specified postprocedural states; Z86.59 Personal history of other mental and behavioral disorders
CPT/HCPCS: 70360; 71045; 81025; 99284

== ENCOUNTER 2022-01-06 15:09 | Emergency (ER) | payer OTHER, MEDICAID ==
[~2022-01-06] VITALS: Ht 172.7 cm; Wt 80.0 kg
[2022-01-06 15:16] VITALS: BP 120/73
== END 2022-01-06 18:22 | disposition left against medical advice (07) ==
LOC: ER 15:09
DX: Z53.21 Procedure and treatment not carried out due to patient leaving prior to being seen by health care provider (principal)

== ENCOUNTER 2022-02-05 17:05 | Emergency (ER) | payer OTHER, MEDICAID ==
[~2022-02-05] VITALS: Ht 172.7 cm; Wt 101.0 kg
[2022-02-05 17:30] VITALS: BP 122/85
== END 2022-02-05 23:20 | disposition left against medical advice (07) ==
LOC: ER 17:05
DX: Z53.21 Procedure and treatment not carried out due to patient leaving prior to being seen by health care provider (principal); E11.65 Type 2 diabetes mellitus with hyperglycemia
CPT/HCPCS: 82962

== ENCOUNTER 2022-04-05 16:20 | Emergency (ER) | payer OTHER, MEDICAID ==
[~2022-04-05] VITALS: Ht 172.7 cm; Wt 93.0 kg
[2022-04-05] MEDS ORDERED: IBUP-2029 MT ×2 (19:38)
[2022-04-05] MEDS ORDERED: ACET-2708 MT (19:42)
[2022-04-05] MEDS ORDERED: ACETAMINOPHEN 325MG TABLET PO ONE (19:45)
[2022-04-05] MEDS ORDERED: KETOROLAC 60MG/2ML VIAL IM ONE (19:45)
[2022-04-05 19:55] VITALS: BP 122/76
== END 2022-04-05 19:58 | disposition home or self-care (01) ==
LOC: ER 16:20
DX: J02.9 Acute pharyngitis, unspecified (principal); F41.9 Anxiety disorder, unspecified; E11.9 Type 2 diabetes mellitus without complications; Z90.710 Acquired absence of both cervix and uterus; Z79.899 Other long term (current) drug therapy
CPT/HCPCS: 70360; 99283

== ENCOUNTER 2022-05-02 15:15 | Emergency (ER) | payer OTHER, MEDICAID ==
[~2022-05-02] VITALS: Ht 172.7 cm; Wt 91.0 kg
[2022-05-02 15:28] VITALS: BP 127/83
== END 2022-05-02 18:55 | disposition left against medical advice (07) ==
LOC: ER 15:15
DX: Z53.21 Procedure and treatment not carried out due to patient leaving prior to being seen by health care provider (principal); L02.211 Cutaneous abscess of abdominal wall
CPT/HCPCS: 99281

== ENCOUNTER 2022-05-07 11:20 | Emergency (ER) | payer OTHER, MEDICAID ==
[~2022-05-07] VITALS: Ht 177.8 cm; Wt 75.0 kg
[2022-05-07 12:13] LABS: BASOPHILS % 0.3 % (0.0-2.0); EOSINOPHILS % 1.8 % (0.0-5.0); HEMATOCRIT. 38.4 % (36.0-48.0); MEAN CORPUSCULAR HEMOGLOBIN 32.4 pg (28.0-32.0); MEAN CORPUSCULAR VOLUME 95.6 fL (81.0-99.0); MEAN PLATELET VOLUME 7.5 fl (7.4-10.4); MONOCYTES % 12.4 % (2.0-8.0); NEUTROPHILS % 50.5 % (40.0-76.0); PLATELET 375 x1000/uL (130-400); RED BLOOD CELL COUNT 4.02 mill/uL (4.2-5.4); RED CELL DISTRIBUTION WIDTH 13.1 % (11.6-14.6)
[2022-05-07 12:20] LABS: CHLORIDE 105 mEq/L (98-107)
[2022-05-07 12:32] LABS: ETHANOL BLOOD < 10 mg/dL
[2022-05-07 17:31] LABS: CLARITY URINE CLEAR (CLEAR); COLOR URINE YELLOW (YELLOW); KETONES URINE NEGATIVE (NEGATIVE); LEUKOCYTE ESTERASE URINE NEGATIVE (NEGATIVE); NITRITE URINE NEGATIVE (NEGATIVE); OCCULT BLOOD URINE NEGATIVE (NEGATIVE); PROTEIN URINE NEGATIVE (NEGATIVE); SPECIFIC GRAVITY URINE 1.019 (1.005-1.030); UROBILINOGEN URINE 0.2 E.U./dL (0.2-1.0)
[2022-05-07 17:49] LABS: *AMPHETAMINES SCREEN URINE NEGATIVE (NEGATIVE); *BARBITURATES SCREEN URINE NEGATIVE (NEGATIVE); *COCAINE SCREEN URINE NEGATIVE (NEGATIVE); CANNABINOID URINE SCREEN NEGATIVE (NEGATIVE); METHADONE URINE SCREEN NEGATIVE (NEGATIVE); OPIATES URINE SCREEN NEGATIVE (NEGATIVE); PHENCYCLIDINE URINE SCREEN NEGATIVE (NEGATIVE)
[2022-05-07 17:58] LABS: *BENZODIAZEPINES SCREEN URINE PRESUMTIVE POSITIVE (NEGATIVE)
[2022-05-07] MEDS ORDERED: DIPHENHYDRAMINE 50MG/ML VIAL IV ONE (22:30)
[2022-05-08] MEDS ORDERED: DIPHENHYDRAMINE 50MG CAPSULE PO ONE (10:00)
[2022-05-08] MEDS ORDERED: DIPH25CA83 MT (10:36)
[2022-05-08] MEDS: FAMOTIDINE 20MG TABLET PO SCH (18:06)
[2022-05-08] MEDS: PREGABALIN 75MG CAPSULE PO SCH (22:00)
[2022-05-09] MEDS ORDERED: DEXTROSE 50% WATER 50ML SYRINGE IV PRN (09:00)
[2022-05-09] MEDS ORDERED: INSULIN LISPRO 100 UNITS/ML SUBCUT ONE (09:00)
[2022-05-09] MEDS: FAMOTIDINE 20MG TABLET PO SCH ×3 (09:00→17:26)
[2022-05-09] MEDS: BLOOD SUGAR DIAGNOSTIC STRIP TEST SCH ×4 (09:14→21:00)
[2022-05-09] MEDS: PREGABALIN 75MG CAPSULE PO SCH ×2 (09:25→22:46)
[2022-05-09] MEDS ORDERED: FLUOXETINE HCL 10 MG CAPSULE PO SCH (11:45)
[2022-05-09] MEDS ORDERED: ALPR0.25 PO (13:07)
[2022-05-09] MEDS: INSULIN LISPRO 100 UNITS/ML SUBCUT SCH ×3 (13:39→21:56)
[2022-05-09] MEDS ORDERED: HALOPERIDOL LACTATE 5MG/ML VIAL IM ONE (20:00)
[2022-05-09] MEDS ORDERED: ARIPIPRAZOLE 5MG TABLET PO SCH (21:00)
[2022-05-10 06:00] VITALS: BP 136/72
[2022-05-10] MEDS: INSULIN LISPRO 100 UNITS/ML SUBCUT SCH (11:00)
== END 2022-05-10 12:00 | disposition home or self-care (01) ==
LOC: ER 11:20
DX: R45.851 Suicidal ideations (principal); F33.1 Major depressive disorder, recurrent, moderate; R45.1 Restlessness and agitation; R44.0 Auditory hallucinations; R44.1 Visual hallucinations; E11.65 Type 2 diabetes mellitus with hyperglycemia; R21 Rash and other nonspecific skin eruption; G40.909 Epilepsy, unspecified, not intractable, without status epilepticus; Z20.822 Contact with and (suspected) exposure to COVID-19; Z79.4 Long term (current) use of insulin; Z75.1 Person awaiting admission to adequate facility elsewhere; Z79.899 Other long term (current) drug therapy
CPT/HCPCS: 36415; 80053; 80305; 80320; 81003; 82962; 85025; 87426; 96374; 99285; C9803; J1200; J1630; J1815; Q0163; G0480

== ENCOUNTER 2023-07-31 10:34 | Emergency (ER) | payer OTHER, MEDICAID ==
[~2023-07-31] VITALS: Ht 172.7 cm; Wt 81.0 kg
[~2023-07-31 10:34] MED LIST changes: -ALPR-392 PO; +ALPR0.25 PO; +DIPH25CA83 MT
[2023-07-31 10:47] VITALS: O2SAT 99
[2023-07-31 12:21] LABS: CHLORIDE 105 mEq/L (98-107); POTASSIUM 4.3 mEq/L (3.5-5.1); SODIUM 137 mEq/L (136-145)
[2023-07-31 12:22] LABS: CALCIUM 9.4 mg/dL (8.7-10.4); CARBON DIOXIDE 27 mEq/L (21-32)
[2023-07-31 12:26] LABS: BASOPHILS % 0.6 % (0.0-2.0); EOSINOPHILS % 1.2 % (0.0-5.0); HEMATOCRIT. 39.9 % (36.0-48.0); HEMOGLOBIN. 13.8 g/dL (12.0-16.0); LYMPHOCYTES % 34.7 % (20.0-50.0); MEAN CORPUSCULAR HEMOGLOBIN 33.1 pg (28.0-32.0); MEAN CORPUSCULAR HGB CONC 34.7 g/dL (31.0-37.0); MEAN CORPUSCULAR VOLUME 95.3 fL (81.0-99.0); MEAN PLATELET VOLUME 7.1 fl (7.4-10.4); MONOCYTES % 8.8 % (2.0-8.0); NEUTROPHILS % 54.7 % (40.0-76.0); PLATELET 360 x1000/uL (130-400); RED BLOOD CELL COUNT 4.19 mill/uL (4.2-5.4); RED CELL DISTRIBUTION WIDTH 12.7 % (11.6-14.6); WHITE BLOOD COUNT 4.5 x1000/uL (4.5-11.0)
[2023-07-31 12:27] LABS: CREATININE 0.8 mg/dL (0.6-1.0); GLUCOSE 106 mg/dL (70-105); HCG SCREEN NEGATIVE; UREA NITROGEN BLOOD 14 mg/dL (9-23)
[2023-07-31] MEDS ORDERED: NAPR-420 MT (12:41)
[2023-07-31 13:08] VITALS: BP 109/82; PULSE 88; RESP 18; TEMP 98.4
== END 2023-07-31 13:07 | disposition home or self-care (01) ==
LOC: ER 10:34
DX: M79.605 Pain in left leg (principal); E11.9 Type 2 diabetes mellitus without complications; Z79.899 Other long term (current) drug therapy; Z86.59 Personal history of other mental and behavioral disorders
CPT/HCPCS: 36415; 73610; 80048; 84550; 84703; 85025; 93971; 99284

== ENCOUNTER 2023-12-24 07:24 | Emergency (ER) | payer MEDICAID, OTHER ==
[~2023-12-24] VITALS: Ht 167.6 cm; Wt 86.0 kg
[~2023-12-24 07:24] MED LIST changes: +NAPR-420 MT
[2023-12-24 07:28] VITALS: O2SAT 98
[2023-12-24] MEDS: KETOROLAC 15MG/ML VIAL IM ONE (08:49)
[2023-12-24] MEDS: CYCLOBENZAPRINE 10MG TABLET PO ONE (08:50)
[2023-12-24] MEDS ORDERED: NAPR-681 MT (12:08)
[2023-12-24] MEDS ORDERED: CYCL10TA21 MT (12:08)
[2023-12-24 12:20] VITALS: BP 128/80; PULSE 98; RESP 18; TEMP 37.05852; O2SAT 99
== END 2023-12-24 12:50 | disposition home or self-care (01) ==
LOC: ER 07:29
DX: M54.50 Low back pain, unspecified (principal); F41.9 Anxiety disorder, unspecified; E11.9 Type 2 diabetes mellitus without complications; Z86.59 Personal history of other mental and behavioral disorders; Z79.899 Other long term (current) drug therapy
CPT/HCPCS: 99285; 72131; 81025; 96372; J1885

== ENCOUNTER 2024-07-02 19:49 | Emergency (ER) | payer OTHER, MEDICAID ==
[~2024-07-02] VITALS: Ht 172.7 cm; Wt 102.4 kg
[~2024-07-02 19:49] MED LIST changes: +NAPR-681 MT
[2024-07-02 19:53] VITALS: PULSE 94; O2SAT 97
[2024-07-02 19:54] VITALS: BP 128/80; RESP 16; TEMP 36.8; O2SAT 99
== END 2024-07-03 01:09 | disposition left against medical advice (07) ==
LOC: ER 19:49
DX: Z00.00 Encounter for general adult medical examination without abnormal findings (principal); Z53.21 Procedure and treatment not carried out due to patient leaving prior to being seen by health care provider; W19.XXXA Unspecified fall, initial encounter; Y93.89 Activity, other specified; Y92.89 Other specified places as the place of occurrence of the external cause; Y99.8 Other external cause status

== ENCOUNTER 2024-08-27 12:12 | Emergency (ER) | payer OTHER, MEDICAID ==
[~2024-08-27] VITALS: Ht 172.7 cm; Wt 92.0 kg
[2024-08-27 12:14] VITALS: O2SAT 98
[2024-08-27 12:45] LABS: BASOPHILS % 0.3 % (0.0-2.0); EOSINOPHILS % 0.7 % (0.0-5.0); HEMATOCRIT. 33.8 % (36.0-48.0); HEMOGLOBIN. 11.7 g/dL (12.0-16.0); LYMPHOCYTES % 21.1 % (20.0-50.0); MEAN CORPUSCULAR HEMOGLOBIN 33.1 pg (28.0-32.0); MEAN CORPUSCULAR HGB CONC 34.5 g/dL (31.0-37.0); MEAN CORPUSCULAR VOLUME 95.8 fL (81.0-99.0); MONOCYTES % 7.8 % (2.0-8.0); NEUTROPHILS % 70.1 % (40.0-76.0); PLATELET 326 x1000/uL (130-400); RED BLOOD CELL COUNT 3.53 mill/uL (4.2-5.4); RED CELL DISTRIBUTION WIDTH 12.6 % (11.6-14.6); WHITE BLOOD COUNT 4.5 x1000/uL (4.5-11.0)
[2024-08-27 12:48] LABS: CLARITY URINE CLEAR (CLEAR); COLOR URINE YELLOW (YELLOW); GLUCOSE URINE NEGATIVE (NEGATIVE); KETONES URINE NEGATIVE (NEGATIVE); LEUKOCYTE ESTERASE URINE NEGATIVE (NEGATIVE); NITRITE URINE NEGATIVE (NEGATIVE); OCCULT BLOOD URINE NEGATIVE (NEGATIVE); PROTEIN URINE 1+ (NEGATIVE); SPECIFIC GRAVITY URINE 1.019 (1.005-1.030)
[2024-08-27 12:52] LABS: CARBON DIOXIDE 27 mEq/L (21-32); CHLORIDE 106 mEq/L (98-107); POTASSIUM 3.7 mEq/L (3.5-5.1); SODIUM 140 mEq/L (136-145)
[2024-08-27 12:53] LABS: CALCIUM 9.1 mg/dL (8.7-10.4)
[2024-08-27 12:58] LABS: CREATININE 0.9 mg/dL (0.6-1.0); ETHANOL BLOOD < 10 mg/dL (<10); GLUCOSE 131 mg/dL (70-105); UREA NITROGEN BLOOD 12 mg/dL (9-23)
[2024-08-27] MEDS: KETOROLAC 30MG/ML VIAL IM STA (13:01)
[2024-08-27 13:07] LABS: *AMPHETAMINES SCREEN URINE NEGATIVE (NEGATIVE); *BARBITURATES SCREEN URINE NEGATIVE (NEGATIVE); *BENZODIAZEPINES SCREEN URINE NEGATIVE (NEGATIVE); *COCAINE SCREEN URINE NEGATIVE (NEGATIVE); METHADONE URINE SCREEN NEGATIVE (NEGATIVE); OPIATES URINE SCREEN NEGATIVE (NEGATIVE); PHENCYCLIDINE URINE SCREEN NEGATIVE (NEGATIVE)
[2024-08-27 13:08] LABS: CANNABINOID URINE SCREEN NEGATIVE (NEGATIVE); ECSTASY MDMA SCREEN URINE NEGATIVE (NEGATIVE)
[2024-08-27 13:09] LABS: FINE GRANULAR CASTS URINE 0-5 /lpf; MUCUS URINE 1+ /lpf (< = 2+); SQUAMOUS EPITHELIAL CELL URINE 2+ /lpf (RARE/1+)
[2024-08-27 13:10] LABS: BACTERIA URINE 2+; RBC URINE 0-2 /hpf (0-2); WBC URINE NONE SEEN /hpf (0-2); YEAST URINE 1+
[2024-08-27 14:22] LABS: HCG SCREEN NEGATIVE
[2024-08-27] MEDS: ACETAMINOPHEN 325MG TABLET PO ONE (16:13)
[2024-08-27] MEDS: GABAPENTIN 300MG CAPSULE PO ONE (16:13)
[2024-08-27 19:12] VITALS: BP 135/97; PULSE 88; RESP 16; TEMP 36.6; O2SAT 100
== END 2024-08-27 19:45 ==
LOC: ER 12:19
DX: S09.90XA Unspecified injury of head, initial encounter (principal); R45.851 Suicidal ideations; F41.9 Anxiety disorder, unspecified; E11.9 Type 2 diabetes mellitus without complications; Z79.899 Other long term (current) drug therapy; Z79.1 Long term (current) use of non-steroidal anti-inflammatories (NSAID); Z98.1 Arthrodesis status; W19.XXXA Unspecified fall, initial encounter; Y93.89 Activity, other specified; Y92.89 Other specified places as the place of occurrence of the external cause; Y99.8 Other external cause status
CPT/HCPCS: 80305; 80048; 81003; 80307; 80329; 80320; 82962; 84703; 85025; 36415; 72100; 73560; 70450; 96372; 99285; J1885; G0480

== ENCOUNTER 2024-09-24 11:44 | Emergency (ER) | payer OTHER, MEDICAID ==
[~2024-09-24] VITALS: Ht 165.1 cm; Wt 69.0 kg
[2024-09-24 11:47] VITALS: O2SAT 97
[2024-09-24] MEDS: SODIUM CHLORIDE 0.9% 1,000 ML IV STA (12:34)
[2024-09-24 12:39] LABS: BASOPHILS % 0.4 % (0.0-2.0); EOSINOPHILS % 1.4 % (0.0-5.0); HEMATOCRIT. 36.0 % (36.0-48.0); HEMOGLOBIN. 12.1 g/dL (12.0-16.0); LYMPHOCYTES % 21.7 % (20.0-50.0); MEAN PLATELET VOLUME 8.4 fl (7.4-10.4); MONOCYTES % 11.6 % (2.0-8.0); NEUTROPHILS % 64.9 % (40.0-76.0); PLATELET 274 x1000/uL (130-400); RED BLOOD CELL COUNT 3.65 mill/uL (4.2-5.4); RED CELL DISTRIBUTION WIDTH 13.3 % (11.6-14.6)
[2024-09-24 12:59] LABS: CREATININE 0.9 mg/dL (0.6-1.0); ETHANOL BLOOD < 10 mg/dL (<10); UREA NITROGEN BLOOD 8 mg/dL (9-23)
[2024-09-24 13:00] LABS: ASPARTATE AMINOTRANSFERASE 39 IU/L (<34)
[2024-09-24 13:01] LABS: BILIRUBIN DIRECT < 0.1 mg/dL (<=3.0); BILIRUBIN TOTAL 0.5 mg/dL (0.1-1.0); PROTEIN TOTAL 6.6 g/dL (6.0-8.3)
[2024-09-24 13:21] LABS: HCG SCREEN NEGATIVE
[2024-09-24] MEDS: SODIUM CHLORIDE 0.9% 1,000 ML IV ONE (15:04)
[2024-09-24 15:44] LABS: CLARITY URINE CLEAR (CLEAR); COLOR URINE YELLOW (YELLOW); GLUCOSE URINE NEGATIVE (NEGATIVE); KETONES URINE TRACE (NEGATIVE); LEUKOCYTE ESTERASE URINE NEGATIVE (NEGATIVE); NITRITE URINE NEGATIVE (NEGATIVE); OCCULT BLOOD URINE NEGATIVE (NEGATIVE); PH URINE 6.5 (4.5-8.0); PROTEIN URINE NEGATIVE (NEGATIVE); SPECIFIC GRAVITY URINE 1.009 (1.005-1.030); UROBILINOGEN URINE 0.2 E.U./dL (0.2-1.0)
[2024-09-24 15:58] LABS: *AMPHETAMINES SCREEN URINE NEGATIVE (NEGATIVE); *BARBITURATES SCREEN URINE NEGATIVE (NEGATIVE); *BENZODIAZEPINES SCREEN URINE NEGATIVE (NEGATIVE); *COCAINE SCREEN URINE NEGATIVE (NEGATIVE); CANNABINOID URINE SCREEN NEGATIVE (NEGATIVE); ECSTASY MDMA SCREEN URINE NEGATIVE (NEGATIVE); METHADONE URINE SCREEN NEGATIVE (NEGATIVE); OPIATES URINE SCREEN NEGATIVE (NEGATIVE); PHENCYCLIDINE URINE SCREEN NEGATIVE (NEGATIVE)
[2024-09-25 11:30] VITALS: BP 111/67; PULSE 89; RESP 18; TEMP 37; O2SAT 99
== END 2024-09-25 11:33 | disposition still patient (30) ==
LOC: ER 11:44 → CANBEDREQ 09-25 07:27 → ER 09-25 11:33
DX: T14.91XA Suicide attempt, initial encounter (principal); F33.2 Major depressive disorder, recurrent severe without psychotic features; Z79.1 Long term (current) use of non-steroidal anti-inflammatories (NSAID); Z79.899 Other long term (current) drug therapy; Y92.89 Other specified places as the place of occurrence of the external cause
CPT/HCPCS: 80076; 80305; 80048; 81003; 80307; 80329; 80320; 82962; 84703; 83690; 83735; 85025; 36415; 93005; 96360; 96361; 99285; J7030; G0480

== ENCOUNTER 2024-12-01 16:20 | Emergency (ER) | payer OTHER ==
[~2024-12-01] VITALS: Ht 172.7 cm; Wt 73.0 kg
[2024-12-01 16:23] VITALS: O2SAT 99
[2024-12-01 17:39] LABS: BASOPHILS % 0.7 % (0.0-2.0); EOSINOPHILS % 2.3 % (0.0-5.0); HEMATOCRIT. 38.1 % (36.0-48.0); HEMOGLOBIN. 12.7 g/dL (12.0-16.0); LYMPHOCYTES % 36.5 % (20.0-50.0); MEAN PLATELET VOLUME 7.9 fl (7.4-10.4); MONOCYTES % 9.8 % (2.0-8.0); NEUTROPHILS % 50.7 % (40.0-76.0); PLATELET 280 x1000/uL (130-400); RED BLOOD CELL COUNT 3.96 mill/uL (4.2-5.4); RED CELL DISTRIBUTION WIDTH 12.9 % (11.6-14.6)
[2024-12-01 17:56] LABS: CREATININE 0.9 mg/dL (0.6-1.0); UREA NITROGEN BLOOD 11 mg/dL (9-23)
[2024-12-01 17:58] LABS: ASPARTATE AMINOTRANSFERASE 21 IU/L (<34); BILIRUBIN DIRECT 0.1 mg/dL (<=3.0); BILIRUBIN TOTAL 0.4 mg/dL (0.1-1.0); PROTEIN TOTAL 7.1 g/dL (6.0-8.3)
[2024-12-01 18:07] LABS: HCG SCREEN NEGATIVE
[2024-12-01 18:11] LABS: COLOR URINE YELLOW (YELLOW); GLUCOSE URINE NEGATIVE (NEGATIVE); KETONES URINE TRACE (NEGATIVE); LEUKOCYTE ESTERASE URINE NEGATIVE (NEGATIVE); NITRITE URINE NEGATIVE (NEGATIVE); OCCULT BLOOD URINE NEGATIVE (NEGATIVE); PH URINE 6.5 (4.5-8.0); PROTEIN URINE TRACE (NEGATIVE); SPECIFIC GRAVITY URINE 1.030 (1.005-1.030); UROBILINOGEN URINE 1.0 E.U./dL (0.2-1.0)
[2024-12-01] MEDS: LIDOCAINE HCL 1% 20ML VIAL INFIL ONE (18:15)
[2024-12-01] MEDS: ACETAMINOPHEN 500MG TABLET PO ONE (18:15)
[2024-12-01] MEDS: LORAZEPAM 1MG TABLET PO ONE (18:15)
[2024-12-01 18:19] LABS: *AMPHETAMINES SCREEN URINE NEGATIVE (NEGATIVE); *BARBITURATES SCREEN URINE NEGATIVE (NEGATIVE); *BENZODIAZEPINES SCREEN URINE NEGATIVE (NEGATIVE); *COCAINE SCREEN URINE NEGATIVE (NEGATIVE)
[2024-12-01 18:20] LABS: CANNABINOID URINE SCREEN NEGATIVE (NEGATIVE); ECSTASY MDMA SCREEN URINE NEGATIVE (NEGATIVE); METHADONE URINE SCREEN NEGATIVE (NEGATIVE); OPIATES URINE SCREEN NEGATIVE (NEGATIVE); PHENCYCLIDINE URINE SCREEN NEGATIVE (NEGATIVE)
[2024-12-01 18:27] LABS: CLARITY URINE SL HAZY (CLEAR)
[2024-12-01 18:28] LABS: BACTERIA URINE NONE SEEN; MUCUS URINE TRACE /lpf (< = 2+); RBC URINE NONE SEEN /hpf (0-2); SQUAMOUS EPITHELIAL CELL URINE 2+ /lpf (RARE/1+); WBC URINE NONE SEEN /hpf (0-2)
[2024-12-02] MEDS: KETOROLAC 30MG/ML VIAL IM ONE (04:46)
[2024-12-02] MEDS ORDERED: HYDROXYZINE 25MG TABLET PO PRN (07:30)
[2024-12-02] MEDS: QUETIAPINE FUMARATE 50MG TABLET PO SCH (09:40)
[2024-12-02] MEDS: INSULIN REGULAR (HUMULIN R) 1000UNITS/10ML VIAL SUBCUT ONE (12:42)
[2024-12-02] MEDS: GABAPENTIN 100MG CAPSULE PO SCH (14:00)
[2024-12-02 18:26] VITALS: BP 137/89; PULSE 101; RESP 16; TEMP 36.7; O2SAT 99
== END 2024-12-02 18:39 ==
LOC: ER 16:20
DX: S01.511A Laceration without foreign body of lip, initial encounter (principal); E11.9 Type 2 diabetes mellitus without complications; Z79.899 Other long term (current) drug therapy; Z20.822 Contact with and (suspected) exposure to COVID-19; Y04.0XXA Assault by unarmed brawl or fight, initial encounter; Y93.89 Activity, other specified; Y92.89 Other specified places as the place of occurrence of the external cause; Y99.8 Other external cause status
CPT/HCPCS: 80076; 80305; 80048; 81003; 80307; 80329; 80320; 82962 ×2; 84703; 85025; 36415; 93005; 12011; 99285; 87426; 96372; J2003; J1815; J1885; G0480

== ENCOUNTER 2024-12-04 21:15 | Emergency (ER) | payer OTHER ==
[~2024-12-04] VITALS: Ht 172.7 cm; Wt 101.0 kg
[2024-12-04 21:22] VITALS: O2SAT 98
[2024-12-04] MEDS ORDERED: LIDO-53 TP (23:24)
[2024-12-04] MEDS ORDERED: NAPR-1176 MT (23:24)
[2024-12-04] MEDS: KETOROLAC 15MG/ML VIAL IM ONE (23:25)
[2024-12-04] MEDS: LIDOCAINE 5% PATCH TOP SCH (23:29)
[2024-12-05 00:07] VITALS: BP 121/88; PULSE 81; RESP 16; TEMP 36.6; O2SAT 99
== END 2024-12-05 00:08 ==
LOC: ER 21:15
DX: M54.9 Dorsalgia, unspecified (principal); E11.9 Type 2 diabetes mellitus without complications; F41.9 Anxiety disorder, unspecified; Z79.1 Long term (current) use of non-steroidal anti-inflammatories (NSAID); Z79.899 Other long term (current) drug therapy
CPT/HCPCS: 99283; 82962; 96372; J1885